=== PATIENT | female | born 1965 ===

== ENCOUNTER 2017-09-03 12:53 | Emergency (ER) | payer OTHER ==
[2017-09-03 12:58] VITALS: BMI 26.4
[2017-09-03] MEDS ORDERED: Sodium Chloride 0.9% 1,000 ML IV STA (13:35)
[2017-09-03 14:19] LABS: BASO % 0.8 % (0.0-2.0); EOS # 0.1 K/uL (0.0-0.7); EOS % 1.3 % (0.0-4.0); HEMOGLOBIN 14.1 g/dL (12.0-16.0); LYMPH # 1.8 K/uL (1.0-4.3); LYMPH % 32.2 % (20.0-40.0); MEAN CELL VOLUME 91.5 fl (81.0-99.0); MEAN CORPUSCULAR HGB CONC 34.9 g/dL (33.0-37.0); MEAN PLATELET VOLUME 7.4 fl (7.2-11.7); MONO # 0.5 K/uL (0.0-0.8); NEUT # 3.3 K/uL (1.8-7.0); NEUT % 57.7 % (50.0-75.0); NRBC % 0.2 % (0.0-0.0); RBC 4.42 Mil/uL (3.80-5.20); RED CELL DISTRIBUTION WIDTH 13.3 % (11.5-14.5); WHITE BLOOD COUNT 5.7 K/uL (4.8-10.8)
[2017-09-03 14:25] LABS: URINE BILIRUBIN NEGATIVE (NEGATIVE); URINE BLOOD NEGATIVE (NEGATIVE); URINE CLARITY CLEAR (Clear); URINE COLOR COLORLESS (YELLOW); URINE GLUCOSE (UA) NEG (Normal); URINE LEUKOCYTE ESTERASE NEG Leu/uL (Negative); URINE PROTEIN NEGATIVE (NEGATIVE); URINE UROBILINOGEN 0.2-1.0 mg/dL (0.2-1.0)
[2017-09-03 14:30] LABS: ALB/GLOB RATIO 1.1 (1.0-2.1); ALBUMIN 4.1 g/dL (3.5-5.0); CALCIUM 9.4 mg/dL (8.4-10.2); GFR AFRICAN-AMERICAN > 60; GFR NON-AFRICAN AMERICAN > 60; LIPASE 222 U/L (23-300)
[2017-09-03 14:41] LABS: ALT/SGPT 80 U/L (9-52); AST/SGOT 47 U/L (14-36); BLOOD UREA NITROGEN 17 mg/dl (7-17)
--- NOTE | 2017-09-03 15:05 | ED PDOC ---
HPI: General Adult Time Seen by Provider: 09/03/17 13:27 Chief Complaint (Nursing): Headache Chief Complaint (Provider): headache, abd pain History Per: Patient, Family, Optical Worker History/Exam Limitations: no limitations Onset/Duration Of Symptoms: Days (headache n1sammle, abd pain x2 days) Current Symptoms Are (Timing): Still Present Severity: Moderate Additional Complaint(s): 52yo female c/o headache diffuse radiating from posterior head on/off x2 months , now developed upper abdominal discomfort associated w nausea x2 days. Denies melena, syncope, chest pain or SOB. Past Medical History Reviewed: Historical Data, Nursing Documentation, Vital Signs Vital Signs: Last Vital Signs Temp 98 F 09/03/17 13:02 Pulse 74 09/03/17 13:02 Resp 20 09/03/17 13:02 BP 165/97 H 09/03/17 13:02 Pulse Ox 98 09/03/17 13:02 - Medical History PMH: Hypothyroidism - Surgical History Surgical History: No Surg Hx - Family History Family History: States: Unknown Family Hx - Living Arrangements Living Arrangements: With Family - Social History Current smoker - smoking cessation education provided: No - Allergies Allergies/Adverse Reactions: Allergies Allergy/AdvReac Type Severity Reaction Status Date / Time No Known Allergies Allergy Verified 09/03/17 13:02 Review of Systems Constitutional: Positive for: Chills, Malaise ENT: Negative for: Ear Pain, Throat Pain, Throat Swelling Cardiovascular: Negative for: Chest Pain, Palpitations Respiratory: Negative for: Cough, Shortness of Breath Gastrointestinal: Positive for: Nausea, Abdominal Pain Genitourinary Female: Negative for: Dysuria, Hematuria Musculoskeletal: Negative for: Neck Pain, Back Pain Skin: Negative for: Lesions, Jaundice Neurological: Positive for: Headache, Dizziness. Negative for: Weakness, Numbness Psych: Negative for: Depression Physical Exam - Reviewed Nursing Documentation Reviewed: Yes Vital Signs Reviewed: Yes - Physical Exam Appears: Positive for: Well, Non-toxic, No Acute Distress Head Exam: Positive for: ATRAUMATIC, NORMAL INSPECTION, NORMOCEPHALIC Skin: Positive for: Normal Color, Warm, DRY Eye Exam: Positive for: EOMI, Normal appearance, PERRL ENT: Positive for: Normal ENT Inspection Neck: Positive for: Normal, Painless ROM Cardiovascular/Chest: Positive for: Regular Rate, Rhythm Respiratory: Positive for: CNT, Normal Breath Sounds Gastrointestinal/Abdominal: Positive for: Soft, Tenderness (mild epigastric tenderness). Negative for: Distended, Guarding Back: Positive for: Normal Inspection Extremity: Positive for: Normal ROM Neurologic/Psych: Positive for: Alert, Oriented. Negative for: Motor/Sensory Deficits - Laboratory Results Result Diagrams: 09/03/17 14:00 09/03/17 14:00 - ECG O2 Sat by Pulse Oximetry: 98 Medical Decision Making Medical Decision Making: workup for abd pain and headache initiated labs, US abd, CT brain ordered toradol and zofran for symptoms initiated Disposition - Clinical Impression Clinical Impression: Headache, Abdominal pain - Patient ED Disposition Is Patient to be Admitted: Transfer of Care Counseled Patient/Family Regarding: Studies Performed - Disposition Disposition: Transfer of Care Disposition Time: 15:06 Condition: STABLE Patient Signed Over To: Izzy Ayala Handoff Comments: pending imaging/re-eval/dispo/diagnosis
--- NOTE | 2017-09-03 15:31 | ED PDOC ---
- Laboratory Results Result Diagrams: 09/03/17 14:00 09/03/17 14:00 - ECG O2 Sat by Pulse Oximetry: 98 (RA) Pulse Ox Interpretation: Normal Medical Decision Making Medical Decision Making: Received endorsement form Dr. Ireland at 1500 pending ED workup, reassessment and final ED disposition. CT Head: FINDINGS: HEMORRHAGE: No intracranial hemorrhage. BRAIN: No mass effect or edema. No atrophy or chronic microvascular ischemic changes. VENTRICLES: Unremarkable. No hydrocephalus. CALVARIUM: Unremarkable. PARANASAL SINUSES: Unremarkable as visualized. No significant inflammatory changes. MASTOID AIR CELLS: Unremarkable as visualized. No inflammatory changes. OTHER FINDINGS: None. IMPRESSION: Normal CT of the Head. 17:15 Patient states that her stomach is feeling better but has continued headache. Provider ordered Reglan, Tylenol, and Benadryl for possible migraine headache. Pending US. 17:50 Patient just received medication. She reports headache started in March and was told it was due to low thyroid. Patient started on medications for thyroid two months ago but headache did not improve. Headache has been going on for 6 months, provider emphasized followup with neurologist for further workup. Ultrasound: FINDINGS: Liver: There is a simple appearing cyst in the left lobe of the liver measuring a maximum of 11 mm. The hepatic parenchyma is echogenic consistent with diffuse fatty liver. No intrahepatic bile duct dilation. Gallbladder: Unremarkable. No gallstones. Negative sonographic Childers's sign. Common bile duct: Unremarkable as visualized. No stones. No dilation. Pancreas: Unremarkable as visualized. Right kidney: Unremarkable. No stones. No solid mass. No hydronephrosis. IMPRESSION: No acute findings. Pt feels better. Stable for discharge. f/u neurology Documented by Nica Burr acting as a scribe for Izzy Ayala MD. All medical record entries made by the Scribe were at my direction and personally dictated by me. I have reviewed the chart and agree that the record accurately reflects my personal performance of the history, physical exam, medical decision making, and the department course for this patient. I have also personally directed, reviewed, and agree with the discharge instructions and disposition. Disposition - Clinical Impression Clinical Impression: Headache, Abdominal pain - POA Present On Arrival: None - Disposition Disposition: Routine/Home Disposition Time: 18:00 Condition: IMPROVED Additional Instructions: VISITA LYNCH DOCTOR EN 1-2 OLEARY A CHEQAR DE NEUVO SI CONTINUA TIENE DOLOR DE WAYNE, NECESITA VISITAR CHRISSY SPECIALISTA DE CEREBRO ( NEUROLOGO.) Prescriptions: Ketorolac Tromethamine [Toradol] 10 mg PO Q8 PRN #20 tab PRN Reason: severe headache Metoclopramide [Reglan] 1 tab PO TID PRN #15 tab PRN Reason: Nausea/Vomiting Instructions: Headache, Adult, Acute Abdomen (Belly Pain) Forms: [facility] ([place]an) Print Language: AZERBAIJANI
--- NOTE | 2017-09-03 16:56 | CT ---
PROCEDURE: CT HEAD WITHOUT CONTRAST. HISTORY: headache [id number] COMPARISON: None available. TECHNIQUE: Axial computed tomography images were obtained through the head/brain without intravenous contrast. Radiation dose: Total exam DLP = mGy-cm. This CT exam was performed using one or more of the following dose reduction techniques: Automated exposure control, adjustment of the mA and/or kV according to patient size, and/or use of iterative reconstruction technique. FINDINGS: HEMORRHAGE: No intracranial hemorrhage. BRAIN: No mass effect or edema. No atrophy or chronic microvascular ischemic changes. VENTRICLES: Unremarkable. No hydrocephalus. CALVARIUM: Unremarkable. PARANASAL SINUSES: Unremarkable as visualized. No significant inflammatory changes. MASTOID AIR CELLS: Unremarkable as visualized. No inflammatory changes. OTHER FINDINGS: None. IMPRESSION: Normal CT of the Head.
[2017-09-03] MEDS ORDERED: DiphenhydrAMINE 50 mg/ml Inj IVP STA (17:16)
[2017-09-03] MEDS ORDERED: DiphenhydrAMINE 50 mg/ml Inj ONE (17:29)
[2017-09-03 18:43] VITALS: BP 118/69; PULSE 73; RESP 17; TEMP 98.5
[2017-09-03 19:34] VITALS: O2SAT 98
--- NOTE | 2017-09-03 19:41 | US ---
HISTORY: RUQ and upper abd pain COMPARISON: None. TECHNIQUE: Sonographic evaluation of the right upper quadrant of the abdomen. FINDINGS: LIVER: Measures cm in length. Increased echogenicity of the liver parenchyma. 1 centimeter left hepatic cyst. GALLBLADDER: Unremarkable. No gallstones. COMMON BILE DUCT: Measures 4 mm. No stones. No dilatation. PANCREAS: Unremarkable as visualized. No mass. No ductal dilatation. RIGHT KIDNEY: Measures 10.7 cm in length. Normal echogenicity. No calculus, mass, or hydronephrosis. AORTA: No aneurysmal dilatation. IVC: Unremarkable. OTHER FINDINGS: None . IMPRESSION: Fibro/ fatty infiltration of the liver. Small left liver cyst.
== END 2017-09-03 18:43 | disposition home or self-care (01) ==
LOC: H.ER 12:53
DX: R51 Headache (principal); R10.9 Unspecified abdominal pain; E03.9 Hypothyroidism, unspecified; K76.0 Fatty (change of) liver, not elsewhere classified
CPT/HCPCS: 70450; 76705; 80053; 81003; 81025; 83690; 85025; 96374; 96375; 99285; J1200; J1885; J2405; J2765; J7040